=== PATIENT | male | born 1990 | race Caucasian/White ===

== ENCOUNTER 2016-04-05 19:36 | Emergency (ER) | payer OTHER ==
--- NOTE | 2016-04-05 22:50 | ED ORDER SUMMARY ---
..... Patient: JOSE A ERICKSON OrderSheet [facility] VisitID: [id number] [address] [place] [address] 25y, M Registration Date/Time: 04/05/2016 ORDER SHEET Weight: 85.2 kg Allergies: None GENERAL ORDERS: CBC w Diff Urgent (20:56 04/05/2016 HBivens A.R.N.P.) (21:20 NHouse ER Tech1) BMP Urgent (20:56 04/05/2016 HBivens A.R.N.P.) (21:20 NHouse ER Tech1) MEDICATION ORDERS: K-Dur PO 20 meq (Do not crush or chew, NOW) (22:26 04/05/2016 HBivens A.R.N.P.) (Ack 22:38 SReitz R.N.) (22:43 SReitz R.N.) IV FLUIDS: IV NS : initial bolus 1000 mL (1000 mL/hr), then none - for X1 (NOW) (20:56 04/05/2016 HBivens A.R.N.P.) (Ack 21:04 SReitz R.N.) (21:07 SReitz R.N.) IV Saline Lock (20:56 04/05/2016 HBivens A.R.N.P.) (Ack 21:04 SReitz R.N.) ORDER SHEET NOTES: [Electronically signed by Montserrat Galaviz A.R.N.P. (23:36 04/05/2016)] [Electronically signed by Leidy Back R.N. (00:00 04/06/2016)] [Electronically locked/signed by Leidy Back R.N. (00:00 04/06/2016)]
--- NOTE | 2016-04-05 22:50 | ED ORDER SUMMARY ---
..... Patient: JOSE A ERICKSON OrderSheet [facility] VisitID: [id number] [address] [place] [address] 25y, M Registration Date/Time: 04/05/2016 ORDER SHEET Weight: 85.2 kg Allergies: None GENERAL ORDERS: CBC w Diff Urgent (20:56 04/05/2016 HBivens A.R.N.P.) (21:20 NHouse ER Tech1) BMP Urgent (20:56 04/05/2016 HBivens A.R.N.P.) (21:20 NHouse ER Tech1) MEDICATION ORDERS: K-Dur PO 20 meq (Do not crush or chew, NOW) (22:26 04/05/2016 HBivens A.R.N.P.) (Ack 22:38 SReitz R.N.) (22:43 SReitz R.N.) IV FLUIDS: IV NS : initial bolus 1000 mL (1000 mL/hr), then none - for X1 (NOW) (20:56 04/05/2016 HBivens A.R.N.P.) (Ack 21:04 SReitz R.N.) (21:07 SReitz R.N.) IV Saline Lock (20:56 04/05/2016 HBivens A.R.N.P.) (Ack 21:04 SReitz R.N.) ORDER SHEET NOTES: [Electronically signed by Montserrat Galaviz A.R.N.P. (23:36 04/05/2016)] [Electronically signed by Leidy Back R.N. (00:00 04/06/2016)] [Electronically locked/signed by Leidy Back R.N. (00:00 04/06/2016)]
--- NOTE | 2016-04-05 22:50 | ED NURSING NOTES ---
Clinical Report - Nurses [facility] [address] [place] [address] 04/05/2016 19:38 Patient: JOSE A ERICKSON TRIAGE Triage time 20:00. Acuity: LEVEL 3. Chief Complaint: Possible withdrawal from medications. Alert. No acute distress. ( Pt. states he has recently been diagnosed with anxiety/depression and having panic attacks. He was put on benzo's about 1 month ago for this. He stopped taking them and [facility]He was seen there and rx'ed "something" else for alcohol and benzo withdrawal. He does not recall the medication but states it was not a benzo or narcotic. He has not had any benzo's since which he was given in the ED. Pt states he feels fine just was at dinner an hour ago and "all the sudden felt dizzy."). SEPSIS SCREEN: Sepsis Screen. Negative (no infection suspected/documented). JHONY COMA SCORE: Jhony Coma Scale: 15- eyes open spontaneously (4); best verbal response- oriented x 4 (5); best motor response- obeys commands (6). --20:24 Leidy Back R.N. 20:09 04/05/16. BP: 154/94. HR: 65. RR: 16. O2 saturation: 100%. Temp: 98.6 F. Pain level now 0/10. --20:24 Leidy Back R.N. Weight: 85.2 kg. Height/Length: 71 inches. BMI: 26.2. --20:24 Leidy Back R.N. Medications None. --20:23 Leidy Back R.N. Allergies None. --20:23 Leidy Back R.N. History Arrived by private vehicle. Historian: patient. Accompanied by friend. Primary physician (pt. does not recall). This is a recurrent problem. Treatment CAFETERIA ASSISTANT: None. PAST MEDICAL HX: Immunizations: up-to-date. SOCIAL HX: Never smoker. Occasional alcohol use. No drug use. ABUSE ASSESSMENT: No report of abuse. NUTRITIONAL RISK ASSESSMENT: The nutritional risk assessment revealed no deficiencies. FUNCTIONAL ASSESSMENT: Functional assessment: no impairments noted. LEARNING NEEDS ASSESSMENT: The learning needs assessment revealed no barriers. --20:24 Leidy Back R.N. PROBLEMS: Depression. Panic Attack. Gastroesophageal Reflux Disease. Anxiety Reaction. Sprain. Bronchitis. --20:23 Leidy Back R.N. Interventions ID band on patient. Ambulatory. --20:24 Leidy Back R.N. PHYSICAL ASSESSMENT Ambulatory to room. GENERAL / NEURO / PSYCH: Alert. The patient does not appear to be in acute distress. RESPIRATORY: Respirations not labored. CVS: Capillary refill less than 2 seconds. Pulses within normal limits. SKIN: Skin is intact, warm and dry. --20:24 Leidy Back R.N. NURSING PROGRESS NOTES Head of bed elevated. Two patient identifiers checked. Call light placed in reach. Side rails up x 2. Bed placed in lowest position. Brakes of bed on. Patient ready for evaluation- chart flagged. --20:25 Leidy Back R.N. 21:04/05/2016 Site #1 started via IV in the right antecubital space with an 20g angiocath, with aseptic technique and good blood return; one attempt. Blood drawn: rainbow set. Labeled in the presence of the patient and sent to the lab. Saline lock flushed with 10 mL saline. --21:07 Leidy Back R.N. 21:07 04/05/2016 Started bag #1 1000 mL IV Fluids IV NS (Saline); at 750 mL/hr over 1 hour(s) via site #1 via IV pump. Allergies verified and confirmed 5 rights. IV patency established. IV site checked: no pain, redness, or swelling. IV flushed thoroughly pre- and post-medication administration. --21:07 Leidy Back R.N. 22:08 04/05/2016 IV Fluids IV NS Discontinued: bag #1 infused. Total amount infused: 1000 mL. IV patency established. IV site checked: no pain, redness, or swelling. IV flushed thoroughly. --22:08 Leidy Back R.N. 22:43 04/05/2016 K-DUR (Potassium Chloride Chantale ER) PO 20 meq given. Allergies verified and confirmed 5 rights. --22:43 Leidy Back R.N. Patient informed about reason for wait. ( pt. appears comfortable. Does not voice any concerns at this time.). --22:44 Leidy Back R.N. DISPOSITION / DISCHARGE Condition at departure: stable. No learning barriers present. Discharge instructions provided and reviewed with the patient. Reviewed referral to family practice. Patient verbalized understanding. Written instructions provided in [place] Island[place]. The patient was discharged home and accompanied by head teacher. He left the Emergency Department ambulatory and via private vehicle. Plater Apprentice driving. Medication list reviewed and validated. --22:54 Leidy Back R.N. 22:53 04/05/16. BP: 150/107. HR: 68. RR: 16. O2 saturation: 100%. Temp: 98.6 F. Pain level now 0/10. --22:54 Leidy Back R.N. Departure time: 22:54. --22:54 Leidy Back R.N. Locked/Released at 04/06/2016 0:00 by Leidy Back R.N.
--- NOTE | 2016-04-05 22:50 | ED NURSING NOTES ---
Clinical Report - Nurses [facility] [address] [place] [address] 04/05/2016 19:38 Patient: JOSE A ERICKSON TRIAGE Triage time 20:00. Acuity: LEVEL 3. Chief Complaint: Possible withdrawal from medications. Alert. No acute distress. ( Pt. states he has recently been diagnosed with anxiety/depression and having panic attacks. He was put on benzo's about 1 month ago for this. He stopped taking them and [facility]:He was seen there and rx'ed "something" else for alcohol and benzo withdrawal. He does not recall the medication but states it was not a benzo or narcotic. He has not had any benzo's since which he was given in the ED. Pt states he feels fine just was at dinner an hour ago and "all the sudden felt dizzy."). SEPSIS SCREEN: Sepsis Screen. Negative (no infection suspected/documented). JHONY COMA SCORE: Jhony Coma Scale: 15- eyes open spontaneously (4); best verbal response- oriented x 4 (5); best motor response- obeys commands (6). --20:24 Leidy Back R.N. 20:09 04/05/16. BP: 154/94. HR: 65. RR: 16. O2 saturation: 100%. Temp: 98.6 F. Pain level now 0/10. --20:24 Leidy Back R.N. Weight: 85.2 kg. Height/Length: 71 inches. BMI: 26.2. --20:24 Leidy Back R.N. Medications None. --20:23 Leidy Back R.N. Allergies None. --20:23 Leidy Back R.N. History Arrived by private vehicle. Historian: patient. Accompanied by friend. Primary physician (pt. does not recall). This is a recurrent problem. Treatment PRODUCT TESTER: None. PAST MEDICAL HX: Immunizations: up-to-date. SOCIAL HX: Never smoker. Occasional alcohol use. No drug use. ABUSE ASSESSMENT: No report of abuse. NUTRITIONAL RISK ASSESSMENT: The nutritional risk assessment revealed no deficiencies. FUNCTIONAL ASSESSMENT: Functional assessment: no impairments noted. LEARNING NEEDS ASSESSMENT: The learning needs assessment revealed no barriers. --20:24 Leidy Back R.N. PROBLEMS: Depression. Panic Attack. Gastroesophageal Reflux Disease. Anxiety Reaction. Sprain. Bronchitis. --20:23 Leidy Back R.N. Interventions ID band on patient. Ambulatory. --20:24 Leidy Back R.N. PHYSICAL ASSESSMENT Ambulatory to room. GENERAL / NEURO / PSYCH: Alert. The patient does not appear to be in acute distress. RESPIRATORY: Respirations not labored. CVS: Capillary refill less than 2 seconds. Pulses within normal limits. SKIN: Skin is intact, warm and dry. --20:24 Leidy Back R.N. NURSING PROGRESS NOTES Head of bed elevated. Two patient identifiers checked. Call light placed in reach. Side rails up x 2. Bed placed in lowest position. Brakes of bed on. Patient ready for evaluation- chart flagged. --20:25 Leidy Back R.N. 21:04/05/2016 Site #1 started via IV in the right antecubital space with an 20g angiocath, with aseptic technique and good blood return; one attempt. Blood drawn: rainbow set. Labeled in the presence of the patient and sent to the lab. Saline lock flushed with 10 mL saline. --21:07 Leidy Back R.N. 21:07 04/05/2016 Started bag #1 1000 mL IV Fluids IV NS (Saline); at 750 mL/hr over 1 hour(s) via site #1 via IV pump. Allergies verified and confirmed 5 rights. IV patency established. IV site checked: no pain, redness, or swelling. IV flushed thoroughly pre- and post-medication administration. --21:07 Leidy Back R.N. 22:08 04/05/2016 IV Fluids IV NS Discontinued: bag #1 infused. Total amount infused: 1000 mL. IV patency established. IV site checked: no pain, redness, or swelling. IV flushed thoroughly. --22:08 Leidy Back R.N. 22:43 04/05/2016 K-DUR (Potassium Chloride Chantale ER) PO 20 meq given. Allergies verified and confirmed 5 rights. --22:43 Leidy Back R.N. Patient informed about reason for wait. ( pt. appears comfortable. Does not voice any concerns at this time.). --22:44 Leidy Back R.N. DISPOSITION / DISCHARGE Condition at departure: stable. No learning barriers present. Discharge instructions provided and reviewed with the patient. Reviewed referral to family practice. Patient verbalized understanding. Written instructions provided in Citizen Of [place]. The patient was discharged home and accompanied by resolution expert. He left the Emergency Department ambulatory and via private vehicle. Campus Recruiter driving. Medication list reviewed and validated. --22:54 Leidy Back R.N. 22:53 04/05/16. BP: 150/107. HR: 68. RR: 16. O2 saturation: 100%. Temp: 98.6 F. Pain level now 0/10. --22:54 Leidy Back R.N. Departure time: 22:54. --22:54 Leidy Back R.N. Locked/Released at 04/06/2016 0:00 by Leidy Back R.N.
--- NOTE | 2016-04-05 22:50 | ED CLINICAL REPORT ---
Clinical Report - Physicians/Mid Levels [facility] [address] [place] [address] 04/05/2016 19:38 Patient: JOSE A ERICKSON Time Seen: 2045; initial patient contact, initial documentation, patient care assumed. Arrived- By private vehicle. Historian- patient. HISTORY OF PRESENT ILLNESS Chief Complaint: NEAR-SYNCOPE. Is no longer unconscious. Has not recovered. This occurred today. The patient had preceding symptoms of light-headedness. No preceding symptoms of nausea, chest pain or abdominal pain. Did not feel faint or lose pulse. No loss of consciousness, seizure activity, incontinence or apnea noted. No injuries noted. Currently he does not feel normal. No weakness currently. No nausea currently. No headache currently. (feels lightheaded only, pt does admit to increased anxiety lately and trouble sleeping last 5 nights, admits to taking himself all his psych meds, and dr rx new ones today, but has not gotten rx filled). Similar symptoms previously: None. Recent medical care: The patient was seen recently at another facility in the emergency department. ( txed at [facility] on 04/02 and 04/01 for anxiety, and 03/31 and 03/28 for anxiety, went to his dr earlier today for same issues). REVIEW OF SYSTEMS No headache, dizziness, weakness, chest pain or palpitations. No abdominal pain, vomiting, diarrhea or fever. All systems otherwise negative, except as recorded above. PAST HISTORY See nurses notes. ( PROBLEMS: Depression. Panic Attack. Gastroesophageal Reflux Disease. Anxiety Reaction. Sprain. Bronchitis. --20:23 Leidy Back, RDaljitN.). SOCIAL HISTORY Never smoker. Regular alcohol use. No drug use. No recent travel. Is a local resident. FAMILY HISTORY Negative. ADDITIONAL NOTES The nursing notes have been reviewed with agreement regarding the chief complaint, HPI, ROS, PMH and patient medications and allergies. PHYSICAL EXAM Vital Signs: 04/05/2016 20:09 BP: 154/94. HR: 65. RR: 16. O2 saturation: 100%. Temp: 98.6 F. Have been reviewed as abnormal and appear to be correct. Hypertensive. Heart rate normal. Respiratory rate normal. Temperature normal. Oxygen saturation normal. Appearance: Alert. No acute distress. Eyes: Pupils equal, round and reactive to light. No nystagmus. Extraocular movements normal. ENT: Normal ENT inspection. TM's normal. Moist mucous membranes. Pharynx normal. Neck: Normal inspection. Neck supple. CVS: Normal heart rate and rhythm. Heart sounds normal. Pulses normal. Respiratory: No respiratory distress. Breath sounds normal. Back: Normal inspection. Skin: Skin warm and dry. Normal skin color. No rash. Normal skin turgor. Extremities: Extremities exhibit normal ROM. No lower extremity edema. Neuro: Alert. Oriented X 3. Mood/affect normal. Speech normal. Cranial nerves normal (as tested). No cerebellar findings. No motor deficit. No sensory deficit. LABS, X-RAYS, AND EKG Laboratory Tests: CBC w Diff: (MOHIT: 04/05/2016 21:15) ( [employer] 04/05/2016 21:26) Final results Test Result Flag Units (Reference) WHITE BLOOD COUNT 6.0 K/uL (4.5-11.5) RED BLOOD COUNT 5.07 M/uL (4.50-5.90) HEMOGLOBIN 15.4 gm/dL (13.5-17.5) HEMATOCRIT 46.5 % (41.0-53.0) MEAN CELL VOLUME 92 fL (80-100) MEAN CORPUSCULAR HGB 30 pg (26-34) MEAN CORPUSCULAR HGB CONC 33 g/dL (31-37) RED CELL DISTRIBUTION WIDTH 12.5 % (11.6-14.8) PLATELET COUNT 216 K/uL (150-400) NEUTROPHIL % 69.8 % (50-75) LYMPH % 14.7 L % (25-40) MONO % 12.2 % (3-14) EOSINOPHIL % 3.1 % (0-4) BASOPHIL % 0.2 % (0-2) BMP: (MOHIT: 04/05/2016 21:15) ( [facility] 04/05/2016 21:42) Final results Test Result Flag Units (Reference) GLUCOSE 105 mg/dL (70-110) BUN 7 mg/dL (7-18) CREATININE 0.8 mg/dL (0.6-1.3) Estimated GFR >60 mL/min Estimated GFR- >60 mL/min Note: Persistent reduction over 3 months in eGFR<60 mL/min/1.73 m2 defines CKD. Patients with eGFR values>=60 mL/min/1.73 m2 may also have CKD if evidence ofpersistent proteinuria. Additional information may be foundat www.[email or web address].org. SODIUM 139 mmol/L (136-145) POTASSIUM 3.2 L mmol/L (3.5-5.1) CHLORIDE 102 mmol/L (98-107) CARBON DIOXIDE 27 mmol/L (21-32) CALCIUM 8.8 mg/dL (8.5-10.1) . PROGRESS AND PROCEDURES Course of Care: 21:14 04/05/16. pt has louis for frequent er visits recently, all psych/anxiety related, see report for full details. Patient counseled in person regarding the patient's stable condition, test results and diagnosis. 22:50. Differential Diagnosis: Other possible considerations: substance abuse, anxiety, insomnia, electrolyte imbalance. Above considerations are based on history, physical exam and laboratory data. Differential diagnosis was discussed with patient. Disposition: Discharged home in good and unchanged condition (22:50). Condition: good and stable. CLINICAL IMPRESSION Anxiety reaction. Psychophysiologic insomnia. (Lightheaded). INSTRUCTIONS (need to get prescriptions filled and take as directed). Warnings: GENERAL WARNINGS: Return or contact your physician immediately if your condition worsens or changes unexpectedly, if not improving as expected, or if other problems arise. SPECIFICALLY, return if you develop chest pain, neck pain, jaw pain, shoulder pain, arm pain, back pain, fluttering sensation in your chest, fainting, numbness, weakness or extreme fatigue. Follow-up: Screening today revealed the patient's blood pressure to be in the hypertensive range. The patient should follow up with a primary care provider for blood pressure management. Understanding of the discharge instructions verbalized by patient. (Electronically signed by Montserrat Galaviz A.R.N.P. 04/05/2016 23:36)
--- NOTE | 2016-04-06 00:01 | ED MAR SUMMARY ---
..... Medication Administration Record [facility] [address] [place] [address] Patient: JOSE A ERICKSON Visit ID: [id number] 25y, M Weight: 85.2 kg Height/Length: 71 in BMI: 26.2 ALLERGIES: None Start 21:07 04/05/2016 Leidy Back R.N., Stop 22:08 04/05/2016 Leidy Back R.N. Medication Administered: IV NS (SALINE), Dose: IV Fluids over 1 hour(s), Rate: 750 mL/hr, Dispensed: 1000 mL bag, Site: #1 right AC. Medication Ordered: IV NS : initial bolus 1000 mL (1000 mL/hr), then none - for X1 (NOW). Given 22:43 04/05/2016 Leidy Back R.N. Medication Administered: K-DUR [PO] (POTASSIUM CHLORIDE EUSEBIO ER), Dose: 20 meq PO. Medication Ordered: K-Dur PO 20 meq (Do not crush or chew, NOW).
--- NOTE | 2016-04-06 00:01 | ED DISCHARGE INSTRUCTIONS ---
Patient: JOSE A ERICKSON General Instructions [facility] VisitID: [id number] [place] [address] 25y, M Registration Date/Time: 04/05/2016 Anxiety reaction. Psychophysiologic insomnia. (Lightheaded). INSTRUCTIONS (need to get prescriptions filled and take as directed). Warnings: GENERAL WARNINGS: Return or contact your physician immediately if your condition worsens or changes unexpectedly, if not improving as expected, or if other problems arise. SPECIFICALLY, return if you develop chest pain, neck pain, jaw pain, shoulder pain, arm pain, back pain, fluttering sensation in your chest, fainting, numbness, weakness or extreme fatigue. Follow-up: Screening today revealed the patient's blood pressure to be in the hypertensive range. The patient should follow up with a primary care provider for blood pressure management. Understanding of the discharge instructions verbalized by patient. ADDITIONAL INFORMATION Stress Reaction Anxiety is the feeling we all get when we think something bad might happen. It is a normal response to stress and usually causes only a mild reaction. When anxiety becomes more severe, emotions may interfere with daily life. In some cases, you may not even be aware of what it is youre anxious about! During an anxiety reaction, you may feel like you are helpless, nervous, depressed or irritable. Your body may show signs of anxiety in many ways. You may experience dry mouth, shakiness, dizziness, weakness, trouble breathing, chest pressure, headache, nausea, diarrhea, tiredness, inability to sleep or sexual problems. Home Care: 1) Try to locate the sources of stress in your life. They may not be obvious! These may include: -- Daily hassles of life which pile up (traffic jams, missed appointments, car troubles, etc.) -- Major life changes, both good (new baby, job promotion) and bad (loss of job, loss of loved one) -- Overload: feeling that you have too many responsibilities and can't take care of all of them at once -- Feeling helpless, feeling that your problems are beyond what youre able to solve 2) Notice how your body reacts to stress. Learn to listen to your body signals. This will help you take action before the stress becomes severe. 3) When you can, do something about the source of your stress. (Avoid hassles, limit the amount of change that happens in your life at one time and take a break when you feel overloaded). 4) Unfortunately, many stressful situations cannot be avoided. It is necessary to learn HOW TO MANAGE STRESS better. There are many proven methods that will reduce your anxiety. These include simple things like exercise, good nutrition and adequate rest. Also, there are certain techniques that are helpful: relaxation and breathing exercises, visualization, biofeedback and meditation. For more information about this, consult your doctor or go to a local bookstore and review the many books and tapes available on this subject. Follow Up If you feel that your anxiety is not responding to self-help measures, contact your doctor or make an appointment with a counselor. Get Prompt Medical Attention if any of the following occur: -- Your symptoms get worse -- Chest pain or trouble breathing -- Severe headache not relieved by rest and mild pain reliever -- Rapid or irregular heartbeat, fainting Insomnia Insomnia refers to a difficulty going to sleep or staying asleep, or both. Insomnia has many causes, including anxiety, stress, depression, chronic pain, sleeping cycles out of balance due to working night shifts or excess napping during the day, and a condition called sleep apnea. Insomnia can be a side effect from stimulant medicines such as decongestants, asthma inhalers and pills, diet pills, and illegal drugs such as speed, crank, crack, and PCP. Home Care: Review your medicines with your doctor or pharmacist to find out if they can cause insomnia. Caffeine, smoking and alcohol also affect sleep. Limit your daily use and do not use these before bedtime. Alcohol may make you sleepy at first, but as its effects wear off, you may awaken a few hours later and have trouble returning to sleep. Do not exercise, eat or drink large amounts of liquid within 2 hours of your bedtime. Improve your sleep habits. Have a fixed bed and wake-up time. Try to keep noise, light and heat in your bedroom at a comfortable level. Try using earplugs or eyeshades if needed. Avoid watching TV in bed. If you do not fall asleep within 30 minutes, try to relax by reading or listening to soft music. Limit daytime napping to one 30 minute period, early in the day. Get regular exercise. Find other ways to lessen your stress level. If a medicine was prescribed to help reset your sleep patterns, take it as directed. Sleeping pills are intended for short-term use, only. If taken for too long, the effect wears off while the risk of physical addiction and psychological dependence increases. Follow-Up with your doctor or as directed by our staff if you feel that your insomnia is not responding to the above measures. Get Prompt Medical Attention if any of the following occur: Extreme restlessness or irritability Confusion or hallucinations (seeing or hearing things that are not there) Anxiety, depression Several days without sleeping You have been given the following additional information: Anxiety Reaction Insomnia (Electronically signed by Montserrat Galaviz A.R.N.P. 04/05/2016 23:36)
--- NOTE | 2016-04-06 00:01 | ED MAR SUMMARY ---
..... Medication Administration Record [facility] [address] [place] [address] Patient: JOSE A ERICKSON Visit ID: [id number] 25y, M Weight: 85.2 kg Height/Length: 71 in BMI: 26.2 ALLERGIES: None Start 21:07 04/05/2016 Leidy Back R.N., Stop 22:08 04/05/2016 Leidy Back R.N. Medication Administered: IV NS (SALINE), Dose: IV Fluids over 1 hour(s), Rate: 750 mL/hr, Dispensed: 1000 mL bag, Site: #1 right AC. Medication Ordered: IV NS : initial bolus 1000 mL (1000 mL/hr), then none - for X1 (NOW). Given 22:43 04/05/2016 Leidy Back R.N. Medication Administered: K-DUR [PO] (POTASSIUM CHLORIDE EUSEBIO ER), Dose: 20 meq PO. Medication Ordered: K-Dur PO 20 meq (Do not crush or chew, NOW).
--- NOTE | 2016-04-06 00:01 | ED MED RECONCILIATION SUMMARY ---
Patient: JOSE A ERICKSON Medication Reconciliation Report [facility] VisitID: [id number] [address] [place] [address] 25y, M Registration Date/Time: 04/05/2016 Weight: 85.2 kg Height/Length: 71 in. BMI: 26.2 ALLERGIES: None The patient's Home Medications are listed below: NONE. The source(s) of the original Home Medication information: Not obtained. The following Medications were given to the patient in the Emergency Department: IV NS IV Fluids bolus 0, then 750 mL/hr, administered: 04/05/2016 9:07:00 PM K-DUR [PO] PO 20 meq, administered: 04/05/2016 10:43:00 PM The following Medications were prescribed to the patient: None.
--- NOTE | 2016-04-06 00:01 | ED MED RECONCILIATION SUMMARY ---
Patient: JOSE A ERICKSON Medication Reconciliation Report [facility] VisitID: [id number] [address] [place] [address] 25y, M Registration Date/Time: 04/05/2016 Weight: 85.2 kg Height/Length: 71 in. BMI: 26.2 ALLERGIES: None The patient's Home Medications are listed below: NONE. The source(s) of the original Home Medication information: Not obtained. The following Medications were given to the patient in the Emergency Department: IV NS IV Fluids bolus 0, then 750 mL/hr, administered: 04/05/2016 9:07:00 PM K-DUR [PO] PO 20 meq, administered: 04/05/2016 10:43:00 PM The following Medications were prescribed to the patient: None.
== END 2016-04-05 22:54 | disposition home or self-care (01) ==
LOC: ED SRH 19:36
DX: F41.9 Anxiety disorder, unspecified (principal); F51.04 Psychophysiologic insomnia; R42 Dizziness and giddiness; K21.9 Gastro-esophageal reflux disease without esophagitis
CPT/HCPCS: 90047; 95059